=== PATIENT | female | born 1970 | race African-American/Black ===

== ENCOUNTER 2017-10-13 16:04 | Emergency (ER) | payer BC ==
[2017-10-13 16:25] VITALS: BP 139/77; PULSE 83; TEMP 98.5; BMI 24.4
--- NOTE | 2017-10-13 16:26 | PDOC ---
Rapid Medical Evaluation Chief Complaint: Eye Problem Time Seen by Provider: 10/13/17 16:18 Medical Evaluation: Allergies Allergy/AdvReac Type Severity Reaction Status Date / Time azithromycin [From Zithromax] Allergy Verified 10/13/17 16:23 Penicillins Allergy Verified 10/13/17 16:23 10/13/17 16:23 I have performed a brief in-person evaluation of this patient. The patient presents with a chief complaint of: b/l conjunctival erythema x 1 week, started on abx drops x 1 week w/ improvement in symptoms but states she ran out of drops prior to a week and now symptoms have worsened Pertinent physical exam findings:b/l conjunctival erythema I have ordered the following:nothing The patient will proceed to the ED for further evaluation.
--- NOTE | 2017-10-13 17:45 | PDOC ---
History of Present Illness - General Chief Complaint: Eye Problem Stated Complaint: EYE PROBLEM Time Seen by Provider: 10/13/17 16:18 History Source: Patient Exam Limitations: No Limitations - History of Present Illness Initial Comments: 10/13/17 17:50 CHIEF COMPLAINT: Bilateral eye drainage and pruritus HISTORY OF PRESENT ILLNESS: Patient is a 46-year-old female, history of hypertension. Presents with bilateral eye exudate and pruritus was told she had conjunctivitis on 10/08/2017 when she was seen for viral illness given Cipro eyedrops in emergency department and was supposed to have prescription sent however there is no prescription sent and patient did not call, she ran out of medication and was given turned emergency department symptoms came back. Patient denies any visual disturbance, no pain. REVIEW OF SYSTEMS: GENERAL/CONSTITUTIONAL: No fever or chills. No weakness. No weight change. HEAD, EYES, EARS, NOSE AND THROAT: No change in vision. Drainage and pruritus to bilateral eyes. No ear pain or discharge. No sore throat. RESPIRATORY: No cough, wheezing, or hemoptysis. SKIN : No rash or easy bruising. NEUROLOGIC: No headache, vertigo, loss of consciousness, or loss of sensation. HEMATOLOGIC/LYMPHATIC: No lymphadenopathy ALLERGIC/IMMUNOLOGIC: No hives or skin allergy. No latex allergy. PHYSICAL EXAM: GENERAL: The patient is awake, alert, and fully oriented, in no acute distress. HEAD: Normal with no signs of trauma. EYES: Pupils equal, round and reactive to light, extraocular movements intact, sclera anicteric, conjunctiva injected bilaterally, extending to limbus after fluorescein staining, no corneal abrasion noted. ENT: Ears normal, nares patent, oropharynx clear without exudates. Moist mucous membranes. NECK: Normal range of motion, supple without lymphadenopathy, JVD, or masses. LUNGS: Breath sounds equal, clear to auscultation bilaterally. No wheezes, and no crackles. NEUROLOGICAL: Cranial nerves II through XII grossly intact. Normal speech, normal gait. SKIN: No erythema no facial edema. Warm, Dry, normal turgor, no rashes or lesions noted. 10/13/17 17:50 Past History - Past Medical History Allergies/Adverse Reactions: Allergies Allergy/AdvReac Type Severity Reaction Status Date / Time azithromycin [From Zithromax] Allergy Verified 10/13/17 16:23 Penicillins Allergy Verified 10/13/17 16:23 Home Medications: Ambulatory Orders Amlodipine Besylate [Norvasc -] 5 mg PO DAILY 10/03/13 Hydrochlorothiazide [Hctz -] 25 mg PO DAILY 10/03/13 Ciprofloxacin 0.3% Eye Drops [Ciloxan 0.3% Eye Drops --] 2 drop OU Q4HWA #1 bottle 10/13/17 Anemia: No COPD: No GI Disorders: Yes (GASTRIC ULCERS) HTN: Yes - Surgical History Abdominal Surgery: Yes () - Suicide/Smoking/Psychosocial Hx Smoking Status: Yes Smoking History: Current every day smoker Have you smoked in the past 12 months: Yes Number of Cigarettes Smoked Daily: 20 Information on smoking cessation initiated: Yes 'Breaking Loose' booklet given: 10/13/17 Hx Alcohol Use: No Drug/Substance Use Hx: No Substance Use Type: None Hx Substance Use Treatment: No *Physical Exam - Vital Signs Last Vital Signs Temp Pulse Resp BP Pulse Ox 98.5 F 83 8 L 139/77 100 10/13/17 16:23 10/13/17 16:23 10/13/17 16:23 10/13/17 16:23 10/13/17 16:23 Medical Decision Making - Medical Decision Making 10/13/17 17:52 A/P: Patient here for evaluation of bilateral conjunctivitis will DC patient home on Cipro based eyedrops, follow-up with ophthalmology. 10/13/17 17:55 *DC/Admit/Observation/Transfer Diagnosis at time of Disposition: Conjunctivitis Qualifiers: Conjunctivitis type: unspecified Laterality: bilateral Qualified Code(s): H10.9 - Unspecified conjunctivitis - Discharge Dispostion Disposition: HOME Condition at time of disposition: Stable Admit: No - Prescriptions Prescriptions: Ciprofloxacin 0.3% Eye Drops [Ciloxan 0.3% Eye Drops --] 2 drop OU Q4HWA #1 bottle - Referrals Referrals: Oumar Redding MD [Primary Care Provider] - - Patient Instructions Printed Discharge Instructions: DI for Conjunctivitis Additional Instructions: * Refrain from touching or scratching eye * Please wash hands frequently * Please followup with his primary care doctor in 2 days if symptoms persist * Medication as prescribed * Warm compresses to eye * If increased redness, swelling, pain to the eye please follow up with primary care doctor immediately or return to emergency room - Post Discharge Activity Forms/Work/School Notes: Back to Work
== END 2017-10-13 17:56 | disposition home or self-care (01) ==
LOC: JERFT 16:04
DX: H10.33 Unspecified acute conjunctivitis, bilateral (principal); I10 Essential (primary) hypertension
CPT/HCPCS: 99281-25